=== PATIENT | female | born 1985 | race Caucasian/White ===

== ENCOUNTER 2017-05-14 13:46 | Emergency (ER) | payer MEDICAID ==
[2017-05-14 14:35] VITALS: O2SAT 97
--- NOTE | 2017-05-14 16:26 | EDPHY ---
HPI/HX/ROS/PE/MDM Narrative: CHIEF COMPLAINT: Chest congestion HPI: This patient is a 32 year old female with history of asthma complaining of chest congestion ongoing since 04/29 or 04/30. Her symptoms are generally worse at night, with persistent coughing and wheezing. She has been using her albuterol inhaler and has been sleeping propped up on pillows to assist her breathing. She has pain in her ribs from her cough. The patient made an appointment with her primary care provider, but missed it and staff recommended she be seen at emergency department. She has two children who are also ill currently, one with pneumonia and one with a sinus infection. She denies fever, vomiting, diarrhea, urinary complaints, or other associated symptoms. REVIEW OF SYSTEMS: Aside from elements discussed in the HPI, a comprehensive 10-point review of systems was reviewed and is negative. PMH: Asthma. SOCIAL HISTORY: Works at [employer] at work. Has two children. Lives in [place]. PHYSICAL EXAM: General:Patient is alert, in no acute distress. ENT:Eyes are normal to inspection. ENT inspection normal. Neck: Normal inspection. Full range of motion. Respiratory:No respiratory distress. Breath sounds normal bilaterally. Cardiovascular: Regular rate and rhythm. Strong peripheral pulses. Normal cap refill. Abdomen:The abdomen is nontender to palpation. There are no peritoneal signs. There are normal bowel sounds. Back: Normal to inspection. No tenderness to palpation. Skin: Normal color. No rash. Warm and dry. Extremities: Normal appearance. Full range of motion. Neuro: Oriented x3. Normal motor function. Normal sensory function. ED Course: 32 year old female presents with two week history of cough and chest congestion. Exam unremarkable, lungs are clear to auscultation bilaterally. The patient is afebrile in the emergency department today. Plan for chest x-ray to evaluate for acute processes. 17:05 Chest x-ray reviewed. Evidence of bronchitis. Negative for pneumonia. Plan to discharge home in good condition. Follow up and return precautions discussed. The patient is comfortable with this plan. - Data Points Imaging: I viewed and interpreted images myself General Time Seen by Provider: 05/14/17 16:19 Initial Vital Signs: Initial Vital Signs Temperature (C) 36.7 C 05/14/17 14:25 Heart Rate 54 L 05/14/17 14:25 Respiratory Rate 18 05/14/17 14:25 Blood Pressure 126/55 H 05/14/17 14:25 O2 Sat (%) 97 05/14/17 14:25 O2 Delivery Mode Room Air Allergies/Adverse Reactions: prochlorperazine edisylate [From Compazine] Allergy (Mild, Verified 05/14/17 14: 31) Itching and anxiety methylphenidate HCl [From Ritalin] Allergy (Verified 05/14/17 14:31) Itching metoclopramide HCl [From Reglan] Allergy (Verified 05/14/17 14:31) Itching benzo's Allergy (Uncoded 06/24/14 23:11) Home Medications: Medication Instructions Recorded Acet/Caffeine/Buta Fioricet 1 each PO 05/14/17 [Fioricet (*)] Benzonatate [Tessalon Pearles (RX)] 100 mg PO TID PRN #15 cap 05/14/17 Naproxen 500 mg PO 05/14/17 Departure - Departure Disposition: Home, Routine, Self-Care Clinical Impression: Acute bronchitis Qualifiers: Bronchitis organism: other organism Qualified Code(s): J20.8 - Acute bronchitis due to other specified organisms Condition: Good Instructions: Acute Bronchitis (ED) Additional Instructions: To Employer: Patient was evaluated in the emergency department today. To Patient: 1. Follow-up with your primary doctor in 2-3 days for further evaluation. 2. Take Tessalon Perles as prescribed as needed for cough suppression. 3. Return to the Emergency Department for fever, chest pain, shortness of breath , increasing pain or other worsening of condition. Referrals: Mirlande Ramirez MD [Medical Doctor] - As per Instructions Prescriptions: Benzonatate [Tessalon Pearles (RX)] 100 mg PO TID PRN #15 cap PRN Reason: Cough, Severe Report Scribed for: Silver Virk Report Scribed by: Tiffanie Ann Date of Report: 05/14/17 Time of Report: 16:27 Physician Review and Approval Statement: Portions of this note were transcribed by an ED scribe. I personally performed the history, physical exam, and medical decision making; and confirm the accuracy of the information in the transcribed note.
[2017-05-14 17:18] VITALS: BP 144/87; PULSE 52; RESP 16; TEMP 98.4
== END 2017-05-14 17:15 | disposition home or self-care (01) ==
DX: J20.8 Acute bronchitis due to other specified organisms (principal); J45.909 Unspecified asthma, uncomplicated

== ENCOUNTER 2017-05-30 01:36 | Emergency (ER) | payer MEDICAID ==
[2017-05-30 01:45] VITALS: RESP 16; O2SAT 97
--- NOTE | 2017-05-30 01:46 | EDPHY ---
H & P Stated Complaint: c/o R lower back pain radiating into R flank x 2 days HPI/ROS: HPI CHIEF COMPLAINT: Back pain HISTORY OF PRESENT ILLNESS: This patient is a very pleasant 32-year-old female , presents emergency room with right CVA back pain worse with certain movements. She denies any particular injury. Started bothering her earlier in the week. However it is worse tonight. She describes as an achy sensation right back right CVA region. She denies radiation of pain anywhere specifically denies pain going into her abdomen. Denies urinary symptoms. Denies fever. Denies chest pain or shortness of breath. It is worse when she goes to bend forward or moves side to side. She does report certain stretching movements to help it. She states she is due to have back injections. It May be musculoskeletal nature. She could not sleep tonight. Decided come the emergency room for Past Medical History: Endometriosis, HPV, ?brain tumor, ?cva, chronic back pain Past Surgical History: , mouth surgery Social History: Denies drugs alcohol tobacco. Family History: Noncontributory ROS REVIEW OF SYSTEMS: A comprehensive 10 point review of systems is otherwise negative aside from elements mentioned in the history of present illness. Exam Constitutional appears well nontoxic, triage nursing summary reviewed, vital signs reviewed, awake/alert. Eyes normal conjunctivae and sclera, EOMI, PERRLA. HENT normal inspection, atraumatic, moist mucus membranes, no epistaxis, neck supple/ no meningismus, no raccoon eyes. Respiratory clear to auscultation bilaterally, normal breath sounds, no respiratory distress, no wheezing. Cardiovascular rate normal, regular rhythm, no murmur, no edema, distal pulses normal. Gastrointestinal soft, non-tender, no rebound, no guarding, normal bowel sounds, no distension, no pulsatile mass. Genitourinary no CVA tenderness. Musculoskeletal no midline vertebral tenderness, full range of motion, no calf swelling, no tenderness of extremities, no meningismus, good pulses, neurovascularly intact. Back: No midline lumbar back pain. Very mild tender palpation paravertebral low right-sided lumbar region and right CVA. No signs of saddle anesthesia. No leg weakness. No signs of cauda equina. Skin pink, warm, & dry, no rash, skin atraumatic. Neurologic awake, alert and oriented x 3, AAOx3, moves all 4 extremities equally, motor intact, sensory intact, CN II-XII intact, normal cerebellar, normal vision, normal speech. Psychiatric normal mood/affect. Heme/Lymph/Immune no lymphadenopathy. Differential Diagnosis: Includes but is not limited to in a particular order musculoskeletal pain, nerve root compression, annular tear, disc herniation, UTI , pyelonephritis, kidney stone Medical Decision Making: Patient declined pain medicine here in the emergency room. She reports she took Tylenol Motrin did not really help. She is okay with check her urine to make sure she did have a UTI. This seems to be musculoskeletal in nature. I recommend anti-inflammatory pain medicine, icing her back, and rest. Additionally follow up with her primary care doctor. Re-evaluation: Urinalysis reviewed no signs of infection. Physical exam is consistent with musculoskeletal pain. I do recommend she takes anti-inflammatory pain medicine like ibuprofen or Tylenol. Ice her back and rest. I do not feel that she needs any imaging at this time. There is no blood in her urine. No signs of infection. She has pain with certain movements. Consistent with most likely musculoskeletal pain. Recommend close follow-up with primary care doctor. As well as return emergency room if there is worsening symptoms questions or concerns. She has no fever. Abdomen is soft nontender. Source: Patient - Personal History Tetanus Vaccine Date: 2014 - Medical/Surgical History Hx Asthma: Yes Hx Chronic Respiratory Disease: No Hx Diabetes: No Hx Cardiac Disease: No Hx Renal Disease: No Hx Cirrhosis: No Hx Alcoholism: No Hx HIV/AIDS: No Hx Splenectomy or Spleen Trauma: No Other PMH: pmh- MIGRAINES, chronic pain, endometriosis, brain tumor, kidney stones, asthma. PSH- TONSILLECTOMY, ADENOIDS - Social History Smoking Status: Former smoker Constitutional: Initial Vital Signs Temperature (C) 36.9 C 05/30/17 01:40 Heart Rate 58 L 05/30/17 01:40 Respiratory Rate 16 05/30/17 01:40 Blood Pressure 135/69 H 05/30/17 01:40 O2 Sat (%) 97 05/30/17 01:40 O2 Delivery Mode Room Air Allergies/Adverse Reactions: prochlorperazine edisylate [From Compazine] Allergy (Mild, Verified 05/30/17 01: 45) Itching and anxiety methylphenidate HCl [From Ritalin] Allergy (Verified 05/30/17 01:45) Itching metoclopramide HCl [From Reglan] Allergy (Verified 05/30/17 01:45) Itching promethazine [From Phenergan] Allergy (Verified 05/30/17 01:45) benzo's Allergy (Uncoded 06/24/14 23:11) Home Medications: Medication Instructions Recorded Acet/Caffeine/Buta Fioricet 1 each PO 05/14/17 [Fioricet (*)] Naproxen 500 mg PO 05/14/17 Albuterol Sulfate 05/30/17 Medical Decision Making - Data Points Laboratory Results: 05/30/17 01:52 Urine Color YELLOW Urine Appearance CLEAR Urine pH 5.0 (5.0-7.5) Ur Specific Portal 1.032 H (1.002-1.030) Urine Protein NEGATIVE (NEGATIVE) Urine Ketones NEGATIVE (NEGATIVE) Urine Blood NEGATIVE (NEGATIVE) Urine Nitrate NEGATIVE (NEGATIVE) Urine Bilirubin NEGATIVE (NEGATIVE) Urine Urobilinogen NEGATIVE EU EU (0.2-1.0) Ur Leukocyte Esterase NEGATIVE (NEGATIVE) Urine Glucose NEGATIVE (NEGATIVE) Departure - Departure Disposition: Home, Routine, Self-Care Clinical Impression: Musculoskeletal back pain Condition: Good Instructions: Low Back Strain (ED) Additional Instructions: 1. Rest. Take it easy. 2. I would take anti-inflammatory pain medicine like Tylenol or Motrin for pain control. 3. Ice your back. 4. Follow up with her primary care doctor Referrals: KISHOR WELSH [Other] - As per Instructions
[2017-05-30] MEDS ORDERED: ONDANSETRON DISINTEGRATING 4 MG TAB ONE (02:14)
[2017-05-30 02:20] LABS: COLOR YELLOW; LEUKOCYTE ESTERASE,URINE NEGATIVE (NEGATIVE); NITRITE,URINE NEGATIVE (NEGATIVE)
[2017-05-30 02:30] VITALS: BP 128/64; PULSE 60; TEMP 98.8
== END 2017-05-30 02:31 | disposition home or self-care (01) ==
DX: M54.9 Dorsalgia, unspecified (principal); J45.909 Unspecified asthma, uncomplicated; Z87.891 Personal history of nicotine dependence

== ENCOUNTER 2017-06-08 20:03 | Emergency (ER) | payer MEDICAID ==
[2017-06-08] MEDS ORDERED: NS 1,000 ML IV ONE ×2 (21:03)
--- NOTE | 2017-06-08 21:07 | EDPHY ---
General Narrative: CHIEF COMPLAINT: Nausea, vomiting, dizziness, dehydration HISTORY OF PRESENT ILLNESS: Patient presents with complaints of nausea, vomiting, dizziness and "fatigue." Symptoms started around 2:00 p.m. today. This was after having trigger point therapy done at 1:30 p.m. from her primary care physician. She has had no chest pain. She has had no abdominal pain. The symptoms started abruptly at 2 with multiple the vomiting that have stop. At this time she now complains of feeling tired and dehydrated. She has no shortness of breath. She no longer feels dizzy. She did not lose consciousness. She had no headache. She has a history of migraines and her primary care physician says that this may be "an abdominal migraine or something." She has no other associated complaints or modifying factors. REVIEW OF SYSTEMS: Ten systems reviewed and are negative unless otherwise noted in the HPI PCP: Kishor Sanchez SPECIALISTS: None PAST MEDICAL HISTORY: Asthma, migraine headaches PAST SURGICAL HISTORY: None FAMILY HISTORY: Noncontributory EXAMINATION General Appearance: Alert, no distress Head: normocephalic, atraumatic Eyes: Pupils equal and round, no conjunctival pallor or injection ENT, Mouth: Mucous membranes moist. Uvula is midline. Airway is widely patent Neck: Normal inspection, supple, non-tender Respiratory: Lungs are clear to auscultation Cardiovascular: Regular rate and rhythm. No murmur Gastrointestinal: Abdomen is soft and nontender no distention. No tympany. No rigidity. No guarding. Back: non-tender, no bony abnormalities Neurological: A&O, nonfocal, normal gait Skin: Warm and dry, no rash. No petechiae or purpura Extremities: Nontender, no pedal edema Psychiatric: Mood and affect normal DIFFERENTIAL DIAGNOSES: Including but not limited to dehydration, enteritis, gastroenteritis, gastritis , pancreatitis, cholelithiasis, cholecystitis MDM: 9:04 p.m. Patient arrives with complaints of nausea, vomiting and dizziness but now complains of feeling dehydrated tired. She has no chest pain or abdominal pain. Her examination is unremarkable stable vital signs. I have ordered laboratory studies and IV fluid. She is resting comfortably in no acute distress. 10:15 p.m. Laboratory studies are unremarkable. They are consistent with mild dehydration. She is receiving IV fluid. I re-evaluated her at this time and she is feeling better with the IV fluid resuscitation. She has no abdominal pain. She a benign abdominal examination. Likely viral etiology. This plan I do feel she is stable for discharge home. She does not want any medications. She is tolerating intake by mouth. She will follow up with primary care physician. SUPERVISION: Patient was independently examined, but I discussed the case with my secondary supervising physician Dr. Underwood - History Smoking Status: Former smoker - Objective Vital Signs: Initial Vital Signs Temperature (C) 98.4 F 06/08/17 20:06 Heart Rate 52 L 06/08/17 20:06 Respiratory Rate 16 06/08/17 20:06 Blood Pressure 126/68 H 06/08/17 20:06 O2 Sat (%) 97 06/08/17 20:06 O2 Delivery Mode Room Air Allergies/Adverse Reactions: prochlorperazine edisylate [From Compazine] Allergy (Mild, Verified 06/08/17 20: 08) Itching and anxiety methylphenidate HCl [From Ritalin] Allergy (Verified 06/08/17 20:08) Itching metoclopramide HCl [From Reglan] Allergy (Verified 06/08/17 20:08) Itching promethazine [From Phenergan] Allergy (Verified 06/08/17 20:08) benzo's Allergy (Uncoded 06/24/14 23:11) Home Medications: Medication Instructions Recorded Acet/Caffeine/Buta Fioricet 1 each PO 05/14/17 [Fioricet (*)] Naproxen 500 mg PO 05/14/17 Albuterol Sulfate 05/30/17 Zofran Odt 06/08/17 Laboratory Results: Laboratory Results 06/08/17 20:50 06/08/17 20:50 06/08/17 06/08/17 06/08/17 20:50 20:50 20:50 WBC 6.56 10^3/uL 10^3/uL (3.80-9.50) RBC 3.74 10^6/uL L 10^6/uL (4.18-5.33) Hgb 12.5 g/dL L g/dL (12.6-16.3) Hct 36.8 % L % (38.0-47.0) MCV 98.4 fL fL (81.5-99.8) MCH 33.4 pg pg (27.9-34.1) MCHC 34.0 g/dL g/dL (32.4-36.7) RDW 13.1 % % (11.5-15.2) Plt Count 261 10^3/uL 10^3/uL (150-400) MPV 11.9 fL H fL (8.7-11.7) Neut % (Auto) 38.6 % L % (39.3-74.2) Lymph % (Auto) 54.1 % H % (15.0-45.0) [place] % (Auto) 6.3 % % (4.5-13.0) Eos % (Auto) 0.3 % L % (0.6-7.6) Baso % (Auto) 0.5 % % (0.3-1.7) Nucleat RBC Rel Count 0.0 % % (0.0-0.2) Absolute Neuts (auto) 2.54 10^3/uL 10^3/uL (1.70-6.50) Absolute Lymphs (auto) 3.55 10^3/uL H 10^3/uL (1.00-3.00) Absolute Monos (auto) 0.41 10^3/uL 10^3/uL (0.30-0.80) Absolute Eos (auto) 0.02 10^3/uL L 10^3/uL (0.03-0.40) Absolute Basos (auto) 0.03 10^3/uL 10^3/uL (0.02-0.10) Absolute Nucleated RBC 0.00 10^3/uL 10^3/uL (0-0.01) Immature Gran % 0.2 % % (0.0-1.1) Immature Gran # 0.01 10^3/uL 10^3/uL (0.00-0.10) Sodium 144 mEq/L mEq/L (134-144) Potassium 3.5 mEq/L mEq/L (3.5-5.2) Chloride 111 mEq/L H mEq/L (97-110) Carbon Dioxide 18 mEq/l L mEq/l (22-31) Anion Gap 15 mEq/L mEq/L (8-16) BUN 12 mg/dL mg/dL (7-23) Creatinine 0.7 mg/dL mg/dL (0.6-1.0) Estimated GFR > 60 Glucose 77 mg/dL mg/dL (70-100) Calcium 9.3 mg/dL mg/dL (8.5-10.4) Lipase 124 IU/L IU/L (23-300) Beta HCG, Qual NEGATIVE Medications Given: Discontinued Medications Sodium Chloride (Ns) 1,000 mls @ 0 mls/hr IV EDNOW ONE; Wide Open PRN Reason: Protocol Stop: 06/08/17 21:04 Last Admin: 06/08/17 21:13 Dose: 1,000 mls Sodium Chloride (Ns) 1,000 mls @ 0 mls/hr IV EDNOW ONE; Wide Open PRN Reason: Protocol Stop: 06/08/17 21:04 Last Admin: 06/08/17 22:04 Dose: 1,000 mls Departure - Departure Disposition: Home, Routine, Self-Care Clinical Impression: Nausea & vomiting Qualifiers: Vomiting type: unspecified Vomiting Intractability: non-intractable Qualified Code(s): R11.2 - Nausea with vomiting, unspecified Condition: Good Instructions: Acute Nausea and Vomiting (ED), Migraine Headache (ED) Additional Instructions: 1. Contact your primary care physician for outpatient follow-up 2. ED precautions for worsening pain, fever, return of vomiting Referrals: KISHOR SANCHEZ [Other] - As per Instructions
[2017-06-08 21:13] LABS: PLATELET COUNT 261 10^3/uL (150-400)
[2017-06-08 22:45] VITALS: BP 119/70; PULSE 66; RESP 15; TEMP 98.2; O2SAT 94
== END 2017-06-08 22:45 | disposition home or self-care (01) ==
DX: R11.2 Nausea with vomiting, unspecified (principal); E86.9 Volume depletion, unspecified; J45.909 Unspecified asthma, uncomplicated; Z87.891 Personal history of nicotine dependence

== ENCOUNTER 2017-06-10 11:25 | Emergency (ER) | payer MEDICAID ==
[2017-06-10] MEDS ORDERED: NS 1,000 ML IV ONE (11:46)
--- NOTE | 2017-06-10 11:51 | EDPHY ---
H & P Time Seen by Provider: 06/10/17 11:33 HPI/ROS: CHIEF COMPLAINT: Headache HISTORY OF PRESENT ILLNESS: Discussed with Dr. Ribeiro her neurologist prior to arrival. Patient has a long history of migraine headaches and saw Dr. Ribeiro in the office on May 30. She usually takes Fioricet for her migraine headaches and got 1 today at 6:00 a.m. not thunderclap in onset or worst of life identical to previous migraines. Her head hurts primarily on the left side, she has numbness in the left side of her face and nausea. She feels weak and dizzy tells me she was slurring her speech earlier but not now. Not associated with fever chills neck stiffness or syncope. No weakness or numbness in extremities. She says symptoms are severe now not controlled by her home Fioricet. REVIEW OF SYSTEMS: Eye: no change in vision ENT: No sore throat or earache Cardiac: no chest pain or syncope Pulmonary: no cough or SOB Abdomen: no vomiting, diarrhea, abdominal pain Musculoskeletal: No neck pain Skin: no rash Neuro: HPI Constitutional: no fever : no urinary symptoms A comprehensive 10 point review of systems is otherwise negative aside from elements mentioned in the history of present illness. PAST MEDICAL HISTORY: Migraine headaches, endometriosis, kidney stones, asthma. Past history of Andrea's palsy. She mentioned something about a tumor behind her right ear like a lipoma but she thought it might also be intracranial as well. No previous definite intracranial lesions identified on previous intracranial imaging Social history: Former smoker General Appearance: Alert and conversant, cooperative. Eyes: No scleral icterus. Pupils equal and reactive and extraocular motion intact. ENT, Mouth: Normal mucous membranes. Normal tympanic membranes. No facial swelling or erythema. Respiratory: Normal respiratory effort, breath sounds equal, lungs are clear to auscultation. Cardiovascular: Regular rate and rhythm. Gastrointestinal: Abdomen is soft and non tender. Neurological: Alert, face symmetric, normal motor and sensory in extremities. [id number] normal bilaterally, no pronator drift, not tremulous. Speech fluent. Skin: Warm and dry, no rashes. Musculoskeletal: Normal range of motion of the neck, no meningeal signs. Psychiatric: Not agitated. Emergency Department course/MDM: Patient presents with exacerbation of her migraine headache. Dr. Ribeiro requested noncontrast head CT treatment of symptoms and discharged to follow up with his practice. Haldol 2.5 mg IV, Benadryl 25 mg IV, dexamethasone 10 mg IV. Normal saline 1 L. Patient does not have objective neurologic deficit to suggest that she has ischemic stroke, I do not think it is likely she has vascular dissection or subarachnoid or [employer] infection. CT head negative per Lv except for atrophy. Discussed with the patient the results. I do not think a frontal lobe abnormality on the left side would be clinically consistent with patient's symptoms, I think ischemic stroke is unlikely. 1326: discussed with Leida Ribeiro, agrees with discharge and office followup. 1335: Patient is sleeping comfortable, easily awakened, headache better, stable for discharge. Smoking Status: Former smoker Constitutional: Initial Vital Signs Temperature (C) 36.8 C 06/10/17 11:27 Heart Rate 62 06/10/17 11:27 Respiratory Rate 18 06/10/17 11:27 Blood Pressure 99/67 L 06/10/17 11:27 O2 Sat (%) 97 06/10/17 11:27 O2 Delivery Mode Room Air Allergies/Adverse Reactions: prochlorperazine edisylate [From Compazine] Allergy (Mild, Verified 06/10/17 11: 27) Itching and anxiety methylphenidate HCl [From Ritalin] Allergy (Verified 06/10/17 11:27) Itching metoclopramide HCl [From Reglan] Allergy (Verified 06/10/17 11:27) Itching promethazine [From Phenergan] Allergy (Verified 06/10/17 11:27) benzo's Allergy (Uncoded 06/10/17 11:27) Home Medications: Medication Instructions Recorded Acet/Caffeine/Buta Fioricet 1 each PO 05/14/17 [Fioricet (*)] Naproxen 500 mg PO 05/14/17 Albuterol Sulfate 05/30/17 Zofran Odt 06/08/17 Medical Decision Making - Diagnostics Imaging Results: Imaging Impressions Head CT 06/10/17 11:46 Impression:1. Left frontal beam hardening artifact versus localized parenchymal edema. Consider MRI, if clinically indicated. 2. Progressive cerebral atrophy since 2013. EtOH abuse? The final concordant results are called to Dr. Gideon Underwood at 12:30 PM General information for patients regarding this examination can be found at [email or web address]. If you have questions or comments about this report, please contact me at (hospital) or [phone] (cell). Imaging: Discussed imaging studies w/ call or contact centre operator Radiologist, I viewed and interpreted images myself Differential Diagnosis: Differential diagnosis considered for headache including but not limited to vascular dissection, vasculitis, subarachnoid hemorrhage, migraine headache, tension headache and infectious causes such as meningitis, pharyngitis and sinusitis. - Data Points Medications Given: Discontinued Medications Dexamethasone (Decadron Injection) 10 mg IVP EDNOW ONE Stop: 06/10/17 11:47 Last Admin: 06/10/17 12:32 Dose: 10 mg Diphenhydramine HCl (Benadryl Injection) 25 mg IVP EDNOW ONE Stop: 06/10/17 11:47 Last Admin: 06/10/17 11:55 Dose: 25 mg Haloperidol Lactate (Haldol Injection) 2.5 mg IVP EDNOW ONE Stop: 06/10/17 11:47 Last Admin: 06/10/17 12:31 Dose: 2.5 mg Sodium Chloride (Ns) 1,000 mls @ 0 mls/hr IV ONCE ONE; Wide Open PRN Reason: Protocol Stop: 06/10/17 11:47 Last Admin: 06/10/17 11:58 Dose: 1,000 mls Departure - Departure Disposition: Home, Routine, Self-Care Clinical Impression: Headache Qualifiers: Headache type: unspecified Headache chronicity pattern: acute headache Intractability: not intractable Qualified Code(s): R51 - Headache Condition: Good Instructions: Acute Headache (ED) Referrals: Ad Ribeiro MD [Medical Doctor] - As per Instructions
[2017-06-10] MEDS: DEXAMETHASONE 10 MG/ML VIAL IVP ONE ×2 (11:58→12:32)
[2017-06-10] MEDS: HALOPERIDOL LACT 5 MG/ML INJ IVP ONE ×2 (11:58→12:31)
[2017-06-10] MEDS ORDERED: DEXAMETHASONE 10 MG/ML VIAL ONE (12:30)
[2017-06-10] MEDS ORDERED: HALOPERIDOL LACT 5 MG/ML INJ ONE (12:31)
[2017-06-10 13:40] VITALS: BP 102/75; PULSE 85; RESP 16; TEMP 98.8; O2SAT 96
== END 2017-06-10 13:46 | disposition home or self-care (01) ==
DX: R51 Headache (principal); J45.909 Unspecified asthma, uncomplicated; E86.9 Volume depletion, unspecified; Z87.891 Personal history of nicotine dependence
CPT/HCPCS: 96374; J1100; J1200; J1630

== ENCOUNTER 2017-07-03 09:07 | Emergency (ER) | payer MEDICAID ==
[2017-07-03 09:13] VITALS: RESP 16
[2017-07-03] MEDS ORDERED: NS 1,000 ML IV ONE (09:51)
[2017-07-03] MEDS ORDERED: ONDANSETRON 4 MG/2 ML VIAL IVP ONE (09:51)
--- NOTE | 2017-07-03 09:55 | EDPHY ---
H & P Time Seen by Provider: 07/03/17 09:23 HPI/ROS: CHIEF COMPLAINT: Vomiting HISTORY OF PRESENT ILLNESS: 32-year-old female presents to the emergency department by private vehicle complaining of multiple episodes of nausea vomiting since Sunday, 3 days ago. Patient states that she has no associated abdominal pain. She states that she is unable to keep any water down. She tried taking Zofran without relief. No fevers or chills. No known ill contacts. No diarrhea. She went to [facility] yesterday and states "they did not do anything for me ". She has seen her primary care provider 3 times in the last 1 week. She still describes overall body pain. She has had this in the past. Her primary care provider has done laboratory studies and has given her pain medication for her pain. She states the overall body pain has been going on for several months. She has never had episodes of prolonged vomiting like this. No back pain. No urinary symptoms. She tells me that she has not urinated since Sunday, 2 days ago. REVIEW OF SYSTEMS: Constitutional: No fever, no chills. Eyes: No double or blurry vision. ENT: No sore throat. Respiratory: No cough, no shortness of breath. Cardiac: No chest pain. Gastrointestinal: Vomiting as above. No diarrhea or abdominal pain. Genitourinary: No dysuria. Musculoskeletal: No neck or back pain. Skin: No rashes. Neurological: No headache. Past Medical/Surgical History: Chronic migraine headaches, endometriosis, kidney stones, asthma, Andrea's palsy, Social History: Single and lives in [place] Smoking Status: Former smoker Physical Exam: General Appearance: Alert, no distress. Afebrile. Tearful with tears in her eyes. Eyes: Pupils equal and round. Extraocular motions are all intact. ENT: Mouth: Mucous membranes moist. Respiratory: No wheezing, rhonchi, or rales, lungs are clear to auscultation. Cardiovascular: Regular rate and rhythm. Gastrointestinal: Abdomen is soft and nontender, no masses, no rebound or guarding, bowel sounds normal. No CVA tenderness bilaterally. Neurological: Alert and oriented x 3, cranial nerves II through XII grossly intact Skin: Warm and dry, no rashes. Musculoskeletal: Nontender to palpate along the cervical, thoracic or lumbar spine. Neck is supple. Extremities: Full range of motion and no peripheral edema. Psychiatric: Patient is oriented X 3, there is no agitation. Constitutional: Initial Vital Signs Temperature (C) 36.7 C 07/03/17 09:11 Heart Rate 75 07/03/17 09:11 Respiratory Rate 16 07/03/17 09:11 Blood Pressure 103/83 H 07/03/17 09:11 O2 Sat (%) 98 07/03/17 09:11 O2 Delivery Mode Room Air Allergies/Adverse Reactions: prochlorperazine edisylate [From Compazine] Allergy (Mild, Verified 07/03/17 09: 09) Itching and anxiety methylphenidate HCl [From Ritalin] Allergy (Verified 07/03/17 09:09) Itching metoclopramide HCl [From Reglan] Allergy (Verified 07/03/17 09:09) Itching promethazine [From Phenergan] Allergy (Verified 07/03/17 09:09) benzo's Allergy (Uncoded 06/10/17 11:27) Home Medications: Medication Instructions Recorded Acet/Caffeine/Buta Fioricet 1 each PO 05/14/17 [Fioricet (*)] Naproxen 500 mg PO 05/14/17 Albuterol Sulfate 05/30/17 Zofran Odt 06/08/17 Medical Decision Making ED Course/Re-evaluation: 32-year-old female presents to the emergency department with multiple episodes of nausea vomiting over last 2-3 days. The patient otherwise looks well. She appears hydrated. Her vital signs are stable. She had an IV established and laboratory studies have been drawn and are pending. Patient was given IV normal saline IV Zofran initially. The patient was very hesitant to try any other medication for nausea since she is very sensitive in allergic to a lot of medications. The patient however did received 2.5 mg of IV Haldol which she has received at her visit when she was in the emergency department on 06/10/2017. Patient received 2.5 mg of IV Haldol. The patient was feeling a bit anxious. She however did not have any recurring vomiting. She is comfortable being discharged home. She does not have a ride therefore she is taking the bus. I encouraged close follow-up with primary care provider. I do not think she has an acute abdomen. She has no pain with palpation on examination. Differential Diagnosis: Including but not limited to gastritis, gastroenteritis, dehydration, bowel obstruction, pancreatitis, acute appendicitis, urinary tract infection, pyelonephritis - Data Points Laboratory Results: Laboratory Results 07/03/17 10:21 07/03/17 10:21 07/03/17 07/03/17 07/03/17 10:21 10:21 10:21 WBC 5.36 10^3/uL 10^3/uL (3.80-9.50) RBC 3.80 10^6/uL L 10^6/uL (4.18-5.33) Hgb 12.5 g/dL L g/dL (12.6-16.3) Hct 37.1 % L % (38.0-47.0) MCV 97.6 fL fL (81.5-99.8) MCH 32.9 pg pg (27.9-34.1) MCHC 33.7 g/dL g/dL (32.4-36.7) RDW 13.2 % % (11.5-15.2) Plt Count 249 10^3/uL 10^3/uL (150-400) MPV 12.0 fL H fL (8.7-11.7) Neut % (Auto) 49.6 % % (39.3-74.2) Lymph % (Auto) 42.9 % % (15.0-45.0) [place] % (Auto) 6.7 % % (4.5-13.0) Eos % (Auto) 0.2 % L % (0.6-7.6) Baso % (Auto) 0.4 % % (0.3-1.7) Nucleat RBC Rel Count 0.0 % % (0.0-0.2) Absolute Neuts (auto) 2.66 10^3/uL 10^3/uL (1.70-6.50) Absolute Lymphs (auto) 2.30 10^3/uL 10^3/uL (1.00-3.00) Absolute Monos (auto) 0.36 10^3/uL 10^3/uL (0.30-0.80) Absolute Eos (auto) 0.01 10^3/uL L 10^3/uL (0.03-0.40) Absolute Basos (auto) 0.02 10^3/uL 10^3/uL (0.02-0.10) Absolute Nucleated RBC 0.00 10^3/uL 10^3/uL (0-0.01) Immature Gran % 0.2 % % (0.0-1.1) Immature Gran # 0.01 10^3/uL 10^3/uL (0.00-0.10) Sodium 145 mEq/L mEq/L (135-145) Potassium 4.1 mEq/L mEq/L (3.5-5.2) Chloride 112 mEq/L H mEq/L (97-110) Carbon Dioxide 15 mEq/l L mEq/l (22-31) Anion Gap 18 mEq/L H mEq/L (8-16) BUN 11 mg/dL mg/dL (7-23) Creatinine 0.7 mg/dL mg/dL (0.6-1.0) Estimated GFR > 60 Glucose 77 mg/dL mg/dL (70-100) Calcium 9.7 mg/dL mg/dL (8.5-10.4) Total Bilirubin 0.3 mg/dL mg/dL (0.1-1.4) Conjugated Bilirubin 0.3 mg/dL mg/dL (0.0-0.5) Unconjugated Bilirubin 0.0 mg/dL mg/dL (0.0-1.1) AST 24 IU/L IU/L (14-46) ALT 40 IU/L IU/L (9-52) Alkaline Phosphatase 78 IU/L IU/L (38-126) Total Protein 7.4 g/dL g/dL (6.3-8.2) Albumin 4.8 g/dL g/dL (3.5-5.0) Lipase 111 IU/L IU/L (23-300) Beta HCG, Qual NEGATIVE Medications Given: Discontinued Medications Haloperidol Lactate (Haldol Injection) 2.5 mg IVP EDNOW ONE Stop: 07/03/17 11:59 Last Admin: 07/03/17 12:14 Dose: 2.5 mg Sodium Chloride (Ns) 1,000 mls @ 0 mls/hr IV ONCE ONE PRN Reason: Wide Open Stop: 07/03/17 09:52 Last Admin: 07/03/17 10:43 Dose: 1,000 mls Lorazepam (Ativan Injection) 1 mg IVP EDNOW ONE Stop: 07/03/17 10:50 Last Admin: 07/03/17 12:02 Dose: Not Given Ondansetron HCl (Zofran) 4 mg IVP EDNOW ONE Stop: 07/03/17 09:52 Last Admin: 07/03/17 10:43 Dose: 4 mg Departure - Departure Disposition: Home, Routine, Self-Care Clinical Impression: Vomiting Qualifiers: Vomiting type: unspecified Vomiting Intractability: non-intractable Nausea presence: with nausea Qualified Code(s): R11.2 - Nausea with vomiting, unspecified Condition: Good Instructions: Acute Nausea and Vomiting (ED) Additional Instructions: Clear liquids and slowly advance diet as tolerated. Follow up with your primary care provider this week to recheck. Referrals: KISHOR NEGRETE [Other] - 1-2 days without fail
[2017-07-03 10:30] LABS: PLATELET COUNT 249 10^3/uL (150-400)
[2017-07-03] MEDS ORDERED: LORazepam 2 MG/ML INJ IVP ONE (10:49)
[2017-07-03] MEDS ORDERED: HALOPERIDOL LACT 5 MG/ML INJ IVP ONE (11:58)
[2017-07-03 13:41] VITALS: BP 121/71; PULSE 80; TEMP 98.4; O2SAT 97
== END 2017-07-03 14:07 | disposition home or self-care (01) ==
DX: R11.2 Nausea with vomiting, unspecified (principal); J45.909 Unspecified asthma, uncomplicated; Z87.891 Personal history of nicotine dependence
CPT/HCPCS: 96374; J1630; J2060; J2405

== ENCOUNTER 2018-01-06 10:18 | Emergency (ER) | payer MEDICAID ==
[2018-01-06 10:24] VITALS: BP 110/61
[2018-01-06] MEDS ORDERED: PROPARACAINE/FLUORESCEIN SOD 5 ML OPHT.BTL OP ONE (10:29)
[2018-01-06] MEDS ORDERED: ERYTHROMYCIN 0.5% 1 GM OPHT.OINT EACHEYE ONE (10:38)
--- NOTE | 2018-01-06 10:38 | EDPHY ---
General Time Seen by Provider: 01/06/18 10:32 Narrative: CHIEF COMPLAINT: Right eyelid infected HISTORY OF PRESENT ILLNESS: Patient presents with complaints of right eyelid infection. She says that she has had a stye in that right lower eyelid for several weeks. Past few days she is describes increasing redness of the stye, pus from the stye and crusting of the right eye. She has no complaints of pain or discomfort of the eye. No visual disturbance. No headache. No fever. No painful movement of her eye. She does not wear contacts or glasses. She went to the pharmacy earlier today to ask for "something to treat this," and they referred to the emergency department. No other associated complaints or modifying factors. TETANUS STATUS: Up-to-date MEDICAL/SURGICAL/SOCIAL HISTORY: Fibromyalgia. Nonsmoker. Lives independently. Works at [employer] in [employer]. REVIEW OF SYSTEMS: Ten systems reviewed and are negative unless otherwise noted in the HPI EXAMINATION General Appearance: Alert, no distress Head: normocephalic, atraumatic ENT: Pupils equal round reactive. EOMs are symmetric and painless and without diplopia. There is no conjunctival irritation, injection or signs of infection. No pallor. There is a small right-sided lower lid stye with some purulence. Cardiovascular: Pulses normal throughout. Brisk cap refill Neurological: A&O, sensory symmetric, strength symmetric Skin: Warm and dry, no rash Extremities: Nontender, no pedal edema DIFFERENTIAL DIAGNOSES: Including but not limited to stye, chelazion, blepharitis, conjunctivitis, periorbital cellulitis, orbital cellulitis MDM: 10:30 a.m. Right-sided stye of the lower lid margin with early blepharitis. I do not appreciate any evidence of conjunctivitis. She has no eye pain or complaints of visual disturbance or blurred vision. The complaint is located to the eyelid only. She is not wear contact lenses or glasses. Vitals are within normal limits. I have ordered erythromycin ointment for her topically. We discussed warm compresses multiple times daily. We discussed follow up with tube room supervisor or here if needed. She is comfortable this plan and discharged home stable condition SUPERVISION: This patient was independently evaluated without direct involvement of or examination by the attending physician. ED Precautions: Worsening pain. Erythema, edema, cyanosis, pallor, paresthesia or anesthesia. - History Smoking Status: Former smoker - Objective Vital Signs: Initial Vital Signs Temperature (C) 97.7 F 01/06/18 10:20 Heart Rate 74 01/06/18 10:20 Respiratory Rate 18 01/06/18 10:20 Blood Pressure 110/61 01/06/18 10:20 O2 Sat (%) 96 01/06/18 10:20 O2 Delivery Mode Room Air Allergies/Adverse Reactions: prochlorperazine edisylate [From Compazine] Allergy (Mild, Verified 01/06/18 10: 25) Itching and anxiety methylphenidate HCl [From Ritalin] Allergy (Verified 01/06/18 10:25) Itching metoclopramide HCl [From Reglan] Allergy (Verified 01/06/18 10:25) Itching promethazine [From Phenergan] Allergy (Verified 01/06/18 10:25) benzo's Allergy (Uncoded 01/06/18 10:25) Home Medications: Medication Instructions Recorded Acet/Caffeine/Buta Fioricet 1 each PO 05/14/17 [Fioricet (*)] Naproxen 500 mg PO 05/14/17 Albuterol Sulfate 05/30/17 Zofran Odt 06/08/17 Erythromycin 0.5% 1 ute OP TID #1 opht.oint 01/06/18 Medications Given: Discontinued Medications Erythromycin (Erythromycin 0.5%) 1 ute EACHEYE ONCE ONE Stop: 01/06/18 10:39 Last Admin: 01/06/18 10:53 Dose: 1 ute Proparacaine HCl/Fluorescein Sodium (Flucaine) 2 drops OP EDNOW ONE Stop: 01/06/18 10:30 Last Admin: 01/06/18 10:39 Dose: Not Given Departure - Departure Disposition: Home, Routine, Self-Care Clinical Impression: Stye external Qualifiers: Laterality: right Eyelid: lower Qualified Code(s): H00.012 - Hordeolum externum right lower eyelid Blepharitis of eyelid of right eye Qualifiers: Blepharitis type: unspecified type Eyelid: lower Qualified Code(s): H01.002 - Unspecified blepharitis right lower eyelid Condition: Good Instructions: Erythromycin (Into the eye), Stye (ED), Blepharitis (ED) Additional Instructions: 1. Warm compresses to the affected eye multiple times daily as tolerated 2. Wash her hands well after contact with her eyes, nose or mouth 3. Erythromycin ointment, apply to the right lower eyelid 3 times daily for 7 days 4. ED precautions for worsening pain, eye pain or changes in vision Referrals: uL Pfeiffer MD [Primary Care Provider] - As per Instructions Vika Stevens MD [Non Staff Provider ()] - As per Instructions Stand Alone Forms: Work Excuse Prescriptions: Erythromycin 0.5% 1 ute OP TID #1 opht.oint
== END 2018-01-06 10:57 | disposition home or self-care (01) ==
DX: H00.012 Hordeolum externum right lower eyelid (principal); Z87.891 Personal history of nicotine dependence

== ENCOUNTER 2018-03-02 13:25 | Emergency (ER) | payer MEDICAID ==
--- NOTE | 2018-03-02 13:32 | EDPHY ---
H & P Stated Complaint: "feeling off". SMITH, Slurred speech. stuffy nose, ST Time Seen by Provider: 03/02/18 13:29 HPI/ROS: CHIEF COMPLAINT: Nasal congestion, fatigue since resuming Seroquel HISTORY OF PRESENT ILLNESS: The patient presents the ED with complaints of nasal congestion, a mild sinus headache and some slight somnolence and disequilibrium since resuming Seroquel 2 days ago. The patient reportedly was at work today and felt poorly. She left work and came to the emergency department for evaluation. She denies any fever or neck stiffness. She denies any history of fall or trauma. She does report a history of chronic intermittent migraines which she takes Fioricet for. The patient denies any complaints of significant cough, fever or abdominal pain. REVIEW OF SYSTEMS: A comprehensive 10 point review of systems is otherwise negative aside from elements mentioned in the history of present illness. Source: Patient - Personal History LMP (Females 10-55): Irregular Current Tetanus/Diphtheria Vaccine: Yes Current Tetanus Diphtheria and Acellular Pertussis (TDAP): Yes Tetanus Vaccine Date: 2014 - Medical/Surgical History Hx Asthma: Yes Hx Chronic Respiratory Disease: No Hx Diabetes: No Hx Cardiac Disease: No Hx Renal Disease: No Hx Cirrhosis: No Hx Alcoholism: No Hx HIV/AIDS: No Hx Splenectomy or Spleen Trauma: No Other PMH: PMH - MIGRAINES, chronic pain, endometriosis, kidney stones, asthma, fibromaylgia. PSH- Tonsillectomy - Social History Smoking Status: Former smoker - Physical Exam Exam: General Appearance: Alert, no distress Head: Normocephalic atraumatic Eyes: Pupils equal and round no pallor or injection ENT, Mouth: Mucous membranes moist, clear rhinorrhea Respiratory: There are no retractions, lungs are clear to auscultation Cardiovascular: Regular rate and rhythm Gastrointestinal: Abdomen is soft and nontender, no masses, bowel sounds normal Neurological: A&O, normal motor function, normal sensory exam, normal cranial nerves Skin: Warm and dry, no rashes Musculoskeletal: Neck is supple nontender, no nuchal rigidity, no Kernig or Brudzinski sign. Extremities: symmetrical, full range of motion Psychiatric: Patient is oriented X 3, there is no agitation Constitutional: Initial Vital Signs Temperature (C) 36.5 C 03/02/18 13:26 Heart Rate 97 03/02/18 13:26 Respiratory Rate 18 03/02/18 13:26 Blood Pressure 125/60 H 03/02/18 13:26 O2 Sat (%) 97 03/02/18 13:26 O2 Delivery Mode Room Air Allergies/Adverse Reactions: prochlorperazine edisylate [From Compazine] Allergy (Mild, Verified 01/22/18 10: 55) Itching and anxiety methylphenidate HCl [From Ritalin] Allergy (Verified 01/22/18 10:55) Itching metoclopramide HCl [From Reglan] Allergy (Verified 01/22/18 10:55) Itching promethazine [From Phenergan] Allergy (Verified 01/22/18 10:55) benzo's Allergy (Uncoded 01/06/18 10:25) Home Medications: Medication Instructions Recorded Acet/Caffeine/Buta Fioricet 1 each PO 05/14/17 [Fioricet (*)] LYRICA 01/22/18 Seroquel 03/02/18 Wellbutrin Xl 03/02/18 Medical Decision Making ED Course/Re-evaluation: The patient presents to the ED with several complaints. She has mild rhinorrhea and a slight sore throat. She has no clinical evidence of pharyngitis or meningitis. The patient also has had some somnolence and feels off balance since starting Seroquel and Wellbutrin 2 days ago. The patient has no clinical evidence of a serotonin syndrome. She is well-appearing. Her neurologic examination is normal. I do not feel that neuro imaging is indicated. The patient will be advised to take Tylenol as needed for her viral upper respiratory infection. She is instructed to return to the ED for any progressive neurologic symptoms or other concerns. Departure - Departure Disposition: Home, Routine, Self-Care Clinical Impression: Upper respiratory infection Condition: Good Instructions: Upper Respiratory Infection (ED) Additional Instructions: 1. Please take Tylenol as needed for your sinus pressure. 2. Fioricet as needed for your migraine headache. 3. I do believe your symptoms today are secondary to poor sleep, recently starting Seroquel and Wellbutrin and a mild cold. Please return to the ED for markedly worsening symptoms, difficulty breathing, high fever or other concerns. Referrals: JUDITH CHAU [Primary Care Provider] - As per Instructions
[2018-03-02 13:38] VITALS: BP 115/75
[2018-03-02] MEDS ORDERED: ACETAMINOPHEN 500 MG TAB PO ONE (13:47)
== END 2018-03-02 13:58 | disposition home or self-care (01) ==
DX: J06.9 Acute upper respiratory infection, unspecified (principal)

== ENCOUNTER 2018-04-07 18:38 | Emergency (ER) | payer MEDICAID ==
--- NOTE | 2018-04-07 19:50 | EDPHY ---
H & P Stated Complaint: Sinus congestion, migraine since yesterday Time Seen by Provider: 04/07/18 19:27 HPI/ROS: CHIEF COMPLAINT: Sinus pressure HISTORY OF PRESENT ILLNESS: The patient presents to the ED with a 1 day history of sinus pressure and nasal congestion. She does have a history of chronic intermittent migraines. She did have a migraine headache yesterday which she treated. The patient has developed more sinus symptoms today. She denies any fever or neck stiffness. She denies cough, fever, vomiting, numbness , weakness or additional acute complaints. REVIEW OF SYSTEMS: A comprehensive 10 point review of systems is otherwise negative aside from elements mentioned in the history of present illness. Source: Patient - Personal History LMP (Females 10-55): Extended Cycle BCP/Inj Current Tetanus Diphtheria and Acellular Pertussis (TDAP): Yes Tetanus Vaccine Date: 2014 - Medical/Surgical History Hx Asthma: Yes Hx Chronic Respiratory Disease: No Hx Diabetes: No Hx Cardiac Disease: No Hx Renal Disease: No Hx Cirrhosis: No Hx Alcoholism: No Hx HIV/AIDS: No Hx Splenectomy or Spleen Trauma: No Other PMH: PMH - MIGRAINES, chronic pain, endometriosis, kidney stones, asthma, fibromaylgia. PSH- Tonsillectomy - Social History Smoking Status: Former smoker - Physical Exam Exam: General Appearance: Alert, no distress Eyes: Pupils equal and round no pallor or injection ENT, Mouth: Mucous membranes moist, sinus tap tenderness noted Respiratory: There are no retractions, lungs are clear to auscultation Cardiovascular: Regular rate and rhythm Gastrointestinal: Abdomen is soft and nontender, no masses, bowel sounds normal Neurological: A&O, normal motor function, normal sensory exam, normal cranial nerves Skin: Warm and dry, no rashes Musculoskeletal: Neck is supple nontender, specifically no meningeal symptoms Extremities: symmetrical, full range of motion Psychiatric: Patient is oriented X 3, there is no agitation Constitutional: Initial Vital Signs Temperature (C) 36.4 C 04/07/18 18:45 Heart Rate 78 04/07/18 18:45 Respiratory Rate 16 04/07/18 18:45 Blood Pressure 136/89 H 04/07/18 18:45 O2 Sat (%) 98 04/07/18 18:45 O2 Delivery Mode Room Air Allergies/Adverse Reactions: prochlorperazine edisylate [From Compazine] Allergy (Mild, Verified 04/07/18 18: 55) Itching and anxiety methylphenidate HCl [From Ritalin] Allergy (Verified 04/07/18 18:55) Itching metoclopramide HCl [From Reglan] Allergy (Verified 04/07/18 18:55) Itching promethazine [From Phenergan] Allergy (Verified 04/07/18 18:55) benzo's Allergy (Uncoded 01/06/18 10:25) Home Medications: Medication Instructions Recorded Acet/Caffeine/Buta Fioricet 1 each PO 05/14/17 [Fioricet (*)] LYRICA 01/22/18 Seroquel 03/02/18 Wellbutrin Xl 03/02/18 Azithromycin [Zithromax] 250 mg PO DAILY #6 tab 04/07/18 Medical Decision Making ED Course/Re-evaluation: The patient reports a history of chronic sinus infections. She presents to the ED with symptoms consistent with a recurrent sinus infection. The patient has been instructed to use Sudafed, Tylenol and ibuprofen. She is also given a prescription for Z-Chirag given her history of chronic sinus infections. The patient is advised to follow up with her primary care provider. She is also instructed to return to the ED for the development of any worsening headache, fever, neck stiffness or acute neurologic symptoms. Departure - Departure Disposition: Home, Routine, Self-Care Clinical Impression: Sinusitis Condition: Good Instructions: Sinusitis (ED) Additional Instructions: 1. Tylenol and ibuprofen as needed for headache and fever. 2. Take antibiotics as directed for sinus infection. 3. Return to the ED for markedly worsening symptoms or other concerns. 4. Please schedule a follow-up appointment with your primary care provider. 5. Please rest, drink plenty of fluids while you are sick. Referrals: MARY CERVANTES [Other] - As per Instructions Stand Alone Forms: Work Excuse
[2018-04-07 20:07] VITALS: BP 133/89
== END 2018-04-07 20:07 | disposition home or self-care (01) ==
DX: J01.90 Acute sinusitis, unspecified (principal)

== ENCOUNTER 2018-05-12 19:05 | Emergency (ER) | payer MEDICAID ==
[2018-05-12] MEDS ORDERED: KETOROLAC 30 MG/1 ML SDV IVP ONE (19:21)
[2018-05-12] MEDS ORDERED: NS 1,000 ML IV ONE ×2 (19:21)
[2018-05-12] MEDS ORDERED: ONDANSETRON 4 MG/2 ML VIAL IVP ONE (19:21)
[2018-05-12] MEDS ORDERED: DEXAMETHASONE 10 MG/ML VIAL IVP ONE (19:21)
[2018-05-12] MEDS ORDERED: METOCLOPRAMIDE 10 MG/2 ML VIAL IVP ONE (19:21)
--- NOTE | 2018-05-12 19:26 | EDPHY ---
H & P Time Seen by Provider: 05/12/18 19:10 HPI/ROS: HPI Headache, nausea and vomiting. 33-year-old female by private vehicle with her brother. This patient reports that she woke this morning and felt nauseous. This was then followed by vomiting. She then developed a headache this evening. Headache described as gradual in onset frontal and aching. She describes the headache is similar to migraine headaches she has had in the past. She describes having multiple episodes of nonbilious, nonbloody vomiting today. Last meal was last night. Last bowel movement was yesterday. She denies diarrhea. No bloody or melenic stool. She denies significant abdominal pain. She has a history of chronic sinusitis and was seen in the emergency department on April 07 and diagnosed with sinusitis at that time. ROS: Constitutional: No fever, no chills. No weakness. Eyes: No discharge. No changes in vision. ENT: No sore throat. She has had nasal congestion with clear rhinorrhea. Respiratory: No cough. No shortness of breath. Cardiac: No chest pain, no palpitations. Gastrointestinal: As above. Genitourinary: No hematuria. No dysuria or increased frequency with urination. Musculoskeletal: No back pain. No neck pain. No myalgias or arthralgias. Skin: No rashes. Neurological: As above. No focal weakness or altered sensation. Past medical history: Migraine headaches, chronic pain, endometriosis, kidney stones, asthma, fibromyalgia, tonsillectomy. Social history: Here with her brother. No alcohol. Nonsmoker. Physical Exam: General Appearance: Alert, she is not in distress. This patient is responding to questions appropriately and in full sentences. This patient appears well- hydrated and well-nourished. Eyes: Pupils equal and round no pallor or injection. No lid edema, erythema or injection. No nystagmus. Mild photophobia. Respiratory: There are no retractions, lungs are clear to auscultation anteriorly with good air movement bilaterally. Cardiovascular: Regular rate and rhythm. No murmur. Gastrointestinal: Abdomen is soft and nontender, no masses, bowel sounds normal. No focal tenderness at McBurney's point. No Castro sign. Neurological: Motor sensory function is grossly intact. Cranial nerves are normal. Gait is normal. Skin: Warm and dry, no rashes. Musculoskeletal: Neck is supple and nontender. No pain on flexion of her neck. Extremities are symmetrical. All joints range without pain or impingement. Psychiatric: No agitation. No depression. Database: EKG: Imaging: Procedures: Emergency department course: Triage vital signs reviewed and are normal. She is afebrile. IV was placed. She was started on IV normal saline with 1-2 L to be given over the next 1-2 hours. She will initially be given 4 mg of IV Zofran, 10 mg of IV Decadron, 30 mg of IV Toradol, 10 mg of IV Reglan and 25 mg of IV Benadryl to treat her headache as well as nausea. She has no contraindications to NSAIDs. 8:20 p.m., the patient was re-evaluated. She was sleeping but easily arousable. She declined the Benadryl, Decadron and Reglan. However, her headache has resolved. She is not tolerating oral fluids. She states that she feels much better. Repeat abdominal exam she is soft, nontender nondistended. Repeat neurologic Assessment is nonfocal. I discussed the results of her blood work with her. She feels comfortable going home at this time. Follow-up and return to emergency department precautions reviewed with her. All of her questions were answered. She was discharged from the emergency department in good condition. Her grandmother will come to the emergency department and pick her up. Differential Diagnosis: The differential diagnosis on this patient includes but is not limited to food borne illness, viral gastritis, migraine headache. Bowel obstruction, cholecystitis, other acute abdominal surgical emergency, subarachnoid hemorrhage , meningitis, encephalitis, cavernous sinus thrombosis, sagittal sinus thrombosis unlikely. This represents a partial list of diagnoses considered. These considerations are based on history, physical exam, past history, reassessment and diagnostic testing. Smoking Status: Former smoker Constitutional: Initial Vital Signs Temperature (C) 36.5 C 05/12/18 19:10 Heart Rate 90 05/12/18 19:10 Respiratory Rate 18 05/12/18 19:10 Blood Pressure 125/64 H 05/12/18 19:10 O2 Sat (%) 96 05/12/18 19:10 O2 Delivery Mode Room Air Allergies/Adverse Reactions: prochlorperazine edisylate [From Compazine] Allergy (Mild, Verified 12/02/18 19: 12) Itching and anxiety methylphenidate HCl [From Ritalin] Allergy (Verified 05/12/18 19:12) Itching metoclopramide HCl [From Reglan] Allergy (Verified 05/12/18 19:12) Itching promethazine [From Phenergan] Allergy (Verified 05/12/18 19:12) benzo's Allergy (Uncoded 05/12/18 19:12) Home Medications: Medication Instructions Recorded Acet/Caffeine/Buta Fioricet 1 each PO 05/14/17 [Fioricet (*)] LYRICA 01/22/18 Seroquel 03/02/18 Wellbutrin Xl 03/02/18 Ondansetron Odt [Zofran Odt 4 mg 4 mg PO Q4PRN PRN #10 tab 05/12/18 (*)] Medical Decision Making - Data Points Laboratory Results: Laboratory Results 05/12/18 19:27 05/12/18 19:27 05/12/18 05/12/18 05/12/18 19:27 19:27 19:27 WBC 5.92 10^3/uL 10^3/uL (3.80-9.50) RBC 4.00 10^6/uL L 10^6/uL (4.18-5.33) Hgb 13.1 g/dL g/dL (12.6-16.3) Hct 37.7 % L % (38.0-47.0) MCV 94.3 fL fL (81.5-99.8) MCH 32.8 pg pg (27.9-34.1) MCHC 34.7 g/dL g/dL (32.4-36.7) RDW 12.8 % % (11.5-15.2) Plt Count 259 10^3/uL 10^3/uL (150-400) MPV 12.3 fL H fL (8.7-11.7) Neut % (Auto) 44.4 % % (39.3-74.2) Lymph % (Auto) 48.5 % H % (15.0-45.0) [place] % (Auto) 6.4 % % (4.5-13.0) Eos % (Auto) 0.2 % L % (0.6-7.6) Baso % (Auto) 0.3 % % (0.3-1.7) Nucleat RBC Rel Count 0.0 % % (0.0-0.2) Absolute Neuts (auto) 2.63 10^3/uL 10^3/uL (1.70-6.50) Absolute Lymphs (auto) 2.87 10^3/uL 10^3/uL (1.00-3.00) Absolute Monos (auto) 0.38 10^3/uL 10^3/uL (0.30-0.80) Absolute Eos (auto) 0.01 10^3/uL L 10^3/uL (0.03-0.40) Absolute Basos (auto) 0.02 10^3/uL 10^3/uL (0.02-0.10) Absolute Nucleated RBC 0.00 10^3/uL 10^3/uL (0-0.01) Immature Gran % 0.2 % % (0.0-1.1) Immature Gran # 0.01 10^3/uL 10^3/uL (0.00-0.10) Sodium 141 mEq/L mEq/L (135-145) Potassium 3.7 mEq/L mEq/L (3.3-5.0) Chloride 107 mEq/L mEq/L (97-110) Carbon Dioxide 19 mEq/l L mEq/l (22-31) Anion Gap 15 mEq/L H mEq/L (6-14) BUN 12 mg/dL mg/dL (7-23) Creatinine 0.8 mg/dL mg/dL (0.6-1.0) Estimated GFR > 60 Glucose 82 mg/dL mg/dL (70-100) Calcium 9.6 mg/dL mg/dL (8.5-10.4) Total Bilirubin 0.4 mg/dL mg/dL (0.1-1.4) Conjugated Bilirubin 0.1 mg/dL mg/dL (0.0-0.5) Unconjugated Bilirubin 0.3 mg/dL mg/dL (0.0-1.1) AST 30 IU/L IU/L (14-46) ALT 39 IU/L IU/L (9-52) Alkaline Phosphatase 79 IU/L IU/L (38-126) Total Protein 8.3 g/dL H g/dL (6.3-8.2) Albumin 5.1 g/dL H g/dL (3.5-5.0) Lipase 103 IU/L IU/L (23-300) Beta HCG, Qual NEGATIVE Medications Given: Discontinued Medications Dexamethasone (Decadron Injection) 10 mg IVP EDNOW ONE Stop: 05/12/18 19:22 Last Admin: 05/12/18 19:48 Dose: Not Given Diphenhydramine HCl (Benadryl Injection) 25 mg IVP EDNOW ONE Stop: 05/12/18 19:22 Last Admin: 05/12/18 19:48 Dose: Not Given Sodium Chloride (Ns) 1,000 mls @ 0 mls/hr IV EDNOW ONE; Wide Open PRN Reason: Protocol Stop: 05/12/18 19:22 Last Admin: 05/12/18 19:44 Dose: 1,000 mls Sodium Chloride (Ns) 1,000 mls @ 0 mls/hr IV EDNOW ONE; Wide Open PRN Reason: Protocol Stop: 05/12/18 19:22 Last Admin: 05/12/18 19:44 Dose: 1,000 mls Ketorolac Tromethamine (Toradol) 30 mg IVP EDNOW ONE Stop: 05/12/18 19:22 Last Admin: 05/12/18 19:46 Dose: 30 mg Metoclopramide HCl (Reglan Injection) 10 mg IVP EDNOW ONE Stop: 05/12/18 19:22 Last Admin: 05/12/18 19:48 Dose: Not Given Ondansetron HCl (Zofran) 4 mg IVP EDNOW ONE Stop: 05/12/18 19:22 Last Admin: 05/12/18 19:44 Dose: 4 mg Departure - Departure Disposition: Home, Routine, Self-Care Clinical Impression: Headache, Nausea and vomiting Condition: Good Instructions: Migraine Headache (ED), Acute Nausea and Vomiting (ED) Additional Instructions: Read and follow provided instructions. Follow-up with your primary care physician in 1-2 days for re-evaluation. Take medication as prescribed for nausea. Return to the emergency department for worsening symptoms, worsening headache, vomiting and inability to keep fluids down despite medications, high fever or other serious concerns. Referrals: NONE *PRIMARY CARE P,. [Primary Care Provider] - As per Instructions Prescriptions: Ondansetron Odt [Zofran Odt 4 mg (*)] 4 mg PO Q4PRN PRN #10 tab PRN Reason: For Nausea & Vomiting
[2018-05-12 19:43] LABS: PLATELET COUNT 259 10^3/uL (150-400)
[2018-05-12 20:42] VITALS: BP 130/67
== END 2018-05-12 20:42 | disposition home or self-care (01) ==
DX: R51 Headache (principal); R11.2 Nausea with vomiting, unspecified
CPT/HCPCS: 96374; J1100; J1200; J1885; J2405; J2765

== ENCOUNTER 2018-09-08 20:37 | Emergency (ER) | payer MEDICAID ==
--- NOTE | 2018-09-08 20:48 | EDPHY ---
HPI/HX/ROS/PE/MDM Narrative: CHIEF COMPLAINT: Migraine HPI: This patient is a 33-year-old female with past medical history including migraines, chronic pain, endometriosis, kidney stones, asthma, fibromyalgia. She complains of four days of worsening headache which is primarily left-sided and includes the left side of her neck. She visited her PCP on Sunday and had trigger point injections which relieved her symptoms briefly. This morning, she woke with increased pain. She complains of nausea and vomiting and has been taking Zofran without relief. She states "when I start puking it feels like my eyes are about to pop out". She has taken her Fioricet and ibuprofen without relief and states she doesn't see any utility in continuing this as it has not helped. No chest pain, shortness of breath, abdominal pain, diarrhea, rash, or other associated symptoms. REVIEW OF SYSTEMS: A comprehensive 10 system review of systems is otherwise negative aside from elements mentioned in the history of present illness and medical decision making. PMH: Migraines, chronic pain, endometriosis, kidney stones, asthma, fibromyalgia , tonsillectomy SOCIAL HISTORY: Family members at bedside. Single. Lives in [place]. PHYSICAL EXAM: General:Patient is alert, in no acute distress. ENT:Eyes are normal to inspection. ENT inspection normal. Neck: Normal inspection. Full range of motion. Respiratory:No respiratory distress. Breath sounds normal bilaterally. Cardiovascular: Regular rate and rhythm. Strong peripheral pulses. Normal cap refill. Abdomen:The abdomen is nontender to palpation. There are no peritoneal signs. There are normal bowel sounds. Back: Normal to inspection. No tenderness to palpation. Skin: Normal color. No rash. Warm and dry. Extremities: Normal appearance. Full range of motion. Neuro: Oriented x3. Normal motor function. Normal sensory function. ED Course: 33 y/o female presents with left-sided migraine symptoms. I offered migraine cocktail for symptom relief. Patient states she cannot take Reglan or Phenergan. Plan to administer 10mg IV Decadron, 25mg IV Benadryl, 30mg IV Toradol, and 1L IV NS. 21:43 Notified by tech the patient wants trigger point injections or to go home. We have discussed that this is not an option here in the emergency department. She would like to go home. Plan to discharge home in good condition. She will follow up with her primary care provider. Return precautions discussed. She is comfortable with this plan. - Data Points Medications Given: Discontinued Medications Dexamethasone (Decadron Injection) 10 mg IVP EDNOW ONE Stop: 09/08/18 20:54 Last Admin: 09/08/18 21:04 Dose: Not Given Diphenhydramine HCl (Benadryl Injection) 25 mg IVP EDNOW ONE Stop: 09/08/18 20:54 Last Admin: 09/08/18 21:02 Dose: 25 mg Sodium Chloride (Ns) 1,000 mls @ 0 mls/hr IV ONCE ONE; Wide Open PRN Reason: Protocol Stop: 09/08/18 20:54 Last Admin: 09/08/18 21:01 Dose: 1,000 mls Ketorolac Tromethamine (Toradol) 30 mg IVP EDNOW ONE Stop: 09/08/18 20:54 Last Admin: 09/08/18 21:02 Dose: 30 mg General Time Seen by Provider: 09/08/18 20:46 Initial Vital Signs: Initial Vital Signs Temperature (C) 36.6 C 09/08/18 20:39 Heart Rate 50 L 09/08/18 20:39 Respiratory Rate 18 09/08/18 20:39 Blood Pressure 95/80 L 09/08/18 20:39 O2 Sat (%) 97 09/08/18 20:39 O2 Delivery Mode Room Air Allergies/Adverse Reactions: prochlorperazine edisylate [From Compazine] Allergy (Mild, Verified 05/12/18 19: 12) Itching and anxiety methylphenidate HCl [From Ritalin] Allergy (Verified 05/12/18 19:12) Itching metoclopramide HCl [From Reglan] Allergy (Verified 05/12/18 19:12) Itching promethazine [From Phenergan] Allergy (Verified 05/12/18 19:12) benzo's Allergy (Uncoded 05/12/18 19:12) Home Medications: Medication Instructions Recorded Acet/Caffeine/Buta Fioricet 1 each PO 05/14/17 [Fioricet (*)] LYRICA 01/22/18 Seroquel 03/02/18 Wellbutrin Xl 03/02/18 Ondansetron Odt [Zofran Odt 4 mg 4 mg PO Q4PRN PRN #10 tab 05/12/18 (*)] Departure - Departure Disposition: Home, Routine, Self-Care Clinical Impression: Migraine Qualifiers: Migraine type: other Status migrainosus presence: without status migrainosus Intractability: not intractable Qualified Code(s): G43.809 - Other migraine, not intractable, without status migrainosus Condition: Good Instructions: Migraine Headache (ED) Additional Instructions: Follow up with your primary care provider. Take your regular migraine medications as prescribed. Return to the emergency department for uncontrollable vomiting, numbness, weakness, fever or other concerns. Referrals: JUDITH CHAU [Primary Care Provider] - As per Instructions Report Scribed for: Sliver Virk Report Scribed by: Tiffanie Ann Date of Report: 09/08/18 Time of Report: 20:54 Physician Review and Approval Statement: Portions of this note were transcribed by an ED scribe. I personally performed the history, physical exam, and medical decision making; and confirm the accuracy of the information in the transcribed note.
[2018-09-08] MEDS ORDERED: NS 1,000 ML IV ONE (20:53)
[2018-09-08] MEDS ORDERED: KETOROLAC 30 MG/1 ML SDV IVP ONE (20:53)
[2018-09-08] MEDS ORDERED: DEXAMETHASONE 10 MG/ML VIAL IVP ONE (20:53)
[2018-09-08 22:02] VITALS: BP 120/76
== END 2018-09-08 22:02 | disposition home or self-care (01) ==
DX: G43.809 Other migraine, not intractable, without status migrainosus (principal)
CPT/HCPCS: 96374; J1100; J1200; J1885